=== PATIENT | male | born 1970 | race Caucasian/White ===

== ENCOUNTER → 2016-10-20 | Day surgery (SDC) | payer OTHER ==
[~2016-10-20] MED LIST: ACETAMINOPHEN 1000 MG/100 ML VIAL IV ONE; BUPIVACAINE/EPINEPHRINE 0.5% PF 30 ML VIAL ONE; KETOROLAC TROMETHAMINE 30 MG/ML (IVP) VIAL ONE; LACTATED RINGER'S 1000 ML INJ 1,000 ML ONE; LIDOCAINE 1%/EPINEPHrine 1:100,000 SOLN 20 ML VIAL ONE; MIDAZOLAM HCL 2 MG/2 ML VIAL ONE; ONDANSETRON HCL 4 MG/2 ML VIAL IV PUSH ONE; PROPOFOL 200 MG/20 ML AMP IV ONE
--- NOTE | 2016-10-21 18:01 | MP ---
cc: SHON CASTANEDA DATE OF SURGERY 10/20/16 PREOPERATIVE DIAGNOSIS Lipoma right upper back. POSTOPERATIVE DIAGNOSIS Lipoma right upper back. PROCEDURE Excision lipoma right upper back. SURGEON Aayush Castaneda MD INFORMATION TECHNOLOGY ACCOUNT MANAGER Tom Martinez, MS III ANESTHESIA General OPERATIVE FINDINGS AND PROCEDURE The patient prior to the operating room and after satisfactory general anesthesia had been obtained, the patient was repositioned in the left lateral decubitus position on a cuenca bag. The right upper back was prepped and draped in the usual sterile fashion. 1% lidocaine with epinephrine was used to infiltrate the skin for local anesthesia. A skin incision was made in Preeti's lines over the palpable mass, carried down sharply through the subcutaneous tissue with the cautery being used for hemostasis. The incision was deepened to where the lipoma was located. It was grasped with Allis forceps and dissected free with the cautery. It was 5.5 x 3 cm in diameter. It was sent for permanent pathology. Hemostasis was strictly assured. The subcutaneous tissue was closed with interrupted 3-0 Vicryl sutures and the skin closed with interrupted 4-0 PDS subcuticular stitches. Steri-Strips and a sterile dressing were applied. The patient was then awakened and taken from the operating room in satisfactory condition having tolerated the procedure without problem. Estimated blood loss was less than 5 mL. The instrument, sponge, needle counts were reported as being correct x2 at the end of the procedure. MD DINORA Monae/ /8:44 AM /5:50 PM
== END | disposition home or self-care (01) ==
LOC: ESDC 06:27
PROVIDERS: ATTEND Surgery
DX: D17.1 Benign lipomatous neoplasm of skin and subcutaneous tissue of trunk (principal)
CPT/HCPCS: 00300; 21931; 88304; J0131; J1885; J2250; J2405; J3010; J7120